=== PATIENT | male | born 1965 | race Caucasian/White ===

== ENCOUNTER 2018-09-20 13:30 | Outpatient (CLI) | payer OTHER | END 2018-09-20 15:00 | disposition home or self-care (01) | LOC: LAB 13:30 | DX: R97.20 Elevated prostate specific antigen [PSA] (principal) ==

== ENCOUNTER 2018-11-02 07:16 | Outpatient (CLI) | payer OTHER | END 2018-11-02 07:20 | disposition home or self-care (01) | LOC: SONOGRAMA 07:16 | DX: R97.20 Elevated prostate specific antigen [PSA] (principal) ==